=== PATIENT | male | born 2000 | race Caucasian/White ===

== ENCOUNTER 2021-12-03 18:57 | Emergency (ER) | payer OTHER ==
[~2021-12-03] VITALS: Ht 172.7 cm; Wt 63.6 kg
[2021-12-03 19:38] VITALS: BP 127/68
[2021-12-03] MEDS ORDERED: IBUPROFEN 600 MG TABLET PO ONE (22:45)
== END 2021-12-03 23:11 | disposition home or self-care (01) ==
LOC: EMS 19:01
DX: S93.401A Sprain of unspecified ligament of right ankle, initial encounter (principal); X50.1XXA Overexertion from prolonged static or awkward postures, initial encounter; Y93.67 Activity, basketball; Y92.89 Other specified places as the place of occurrence of the external cause; Y99.8 Other external cause status
CPT/HCPCS: 29515; 99284; 73590-TC; 73610-TC; 73630-TC; Z7502; Z7610